=== PATIENT | female | born 1995 | race Caucasian/White ===

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

== ENCOUNTER 2017-09-05 14:18 | Outpatient (CLI) | payer BC, OTHER ==
[2017-09-05 19:58] LABS: FOLLICLE STIMULATING HORMONE 4.47 mIU/mL
[2017-09-05 20:00] LABS: LUTEINIZING HORMONE 5.67 mIU/mL
== END 2017-09-05 14:19 | disposition home or self-care (01) ==
LOC: LAB.N 14:18
PROVIDERS: ATTEND Obstetrics & Gynecology
DX: Z12.79 Encounter for screening for malignant neoplasm of other genitourinary organs (principal)
CPT/HCPCS: 36415; 82670; 83001; 83002